=== PATIENT | male | born 1985 | race Hispanic/Latino ===

== ENCOUNTER 2020-12-30 15:09 | Emergency (ER) | payer OTHER ==
[~2020-12-30] VITALS: Ht 170.2 cm; Wt 114.8 kg
[2020-12-30 15:13] VITALS: BP 147/102
== END 2020-12-30 15:42 | disposition home or self-care (01) ==
LOC: EDH 15:09
DX: A08.4 Viral intestinal infection, unspecified (principal); E66.9 Obesity, unspecified; Z68.39 Body mass index [BMI] 39.0-39.9, adult
CPT/HCPCS: 99281